=== PATIENT | female | born 1950 | race Caucasian/White ===

== ENCOUNTER 2023-05-11 10:30 | Outpatient (OUT) | payer MEDICARE, BC, SELFPAY ==
--- NOTE | 2023-05-11 10:43 | XR_ITS ---
[address] [address] Patient Name: GRACE HASKINS MRN: [id number] date: 1950 Sex: F Assigned Patient Location: [facility] Current Patient Location: MRI Accession/Order Number: [id number] Exam Date: 05/11/2023 11:40 Report Date: 05/11/2023 21:34 At the request of: MICHELET DYER Procedure: XR DEXA axial skeleton EXAMINATION: XR DEXA axial skeleton, 05/11/2023 11:40 AM EDT HISTORY: Osteoporosis M81.0 COMPARISON: 2020, 2018, 2016 TECHNIQUE: Dual-energy X-ray absorptiometry (DEXA) bone density study performed for the axial skeleton. HISTORY: Osteoporosis M81.0 FINDINGS: Bone mineral density AP spine L1-L4 measures 0.902 g/sq cm. T score -2.3. WHO classification: Osteopenia. Lowest bone mineral density right femoral neck measures 0.64 g/sq cm. T score -3.0. WHO classification: Osteoporosis IMPRESSION: Osteoporosis. High fracture risk Electronically authenticated by: CRISTINA ANTHONY Date: 05/11/2023 21:34
== END 2023-05-11 10:31 | disposition home or self-care (01) ==
LOC: RAD 10:30
PROVIDERS: PCP Internal Medicine
DX: M81.0 Age-related osteoporosis without current pathological fracture (principal); Z79.899 Other long term (current) drug therapy
CPT/HCPCS: 77080

== ENCOUNTER 2023-05-11 10:32 | Outpatient (OUT) | payer MEDICARE, BC, SELFPAY ==
--- NOTE | 2023-05-11 10:49 | MR_ITS ---
[address] [address] Patient Name: GRACE HASKINS MRN: [id number] date: 1950 Sex: F Assigned Patient Location: MRI Current Patient Location: [facility] Accession/Order Number: [id number] Exam Date: 05/11/2023 10:53 Report Date: 05/11/2023 17:32 At the request of: TORIN PERRY Procedure: MR hip RT wo con EXAM: MR hip RT wo con HISTORY: Right hip pain COMPARISON: X-rays 12/01/2022 TECHNIQUE: Axial and coronal large vxuvz-pi-vlkj imaging is performed through the pelvis and both hips. Small ntaya-xc-bfxa coronal and sagittal imaging through the right hip FINDINGS: No fracture, dislocation, subluxation or osseous lesion. The sacroiliac joints are normal. Mild amount age-related marrow edema of the inferior aspect of the left sacral sandy. Joint space narrowing, osteophytes and sclerosis of the pubic symphysis. Moderate amount of fluid within the right greater trochanter bursa. Interstitial edema of the right gluteus minimus muscle. Thickening and edema of the right gluteus minimus tendon. The gluteus medius tendon exhibits no gross thickening, tear or edema. Moderate thickening and interstitial edema of the right common hamstring complex (coronal 25 and axial 30). Mild thickening and interstitial edema of the left common hamstring complex. No tendon tear. The remainder of the visualized tendons are unremarkable. The remainder of the visualized muscles exhibit no additional edema, hematoma, mass or cyst. The bilateral hip joints exhibit no effusion. The bilateral acetabular labrum are unremarkable. The bilateral femoral head and acetabular cartilage exhibit no chondral or osteochondral defects. The superficial subcutaneous soft tissues are free of edema, hematoma, mass or cyst. IMPRESSION: 1. Moderate right gluteus minimus tendinopathy, myositis and reactive fluid within the right greater trochanteric bursa. 2. Moderate left common hamstring origin tendinopathy. 3. Mild right common hamstring origin tendinopathy. 4. Moderate degenerative changes of the pubic symphysis. 5. The sacroiliac and hip joints are unremarkable. Electronically authenticated by: CRISTINA ABREU Date: 05/11/2023 17:32
== END 2023-05-11 10:33 | disposition home or self-care (01) ==
LOC: MRI 10:32
PROVIDERS: PCP Internal Medicine; Visit Provider Neurological Surgery
DX: M81.0 Age-related osteoporosis without current pathological fracture (principal); Z79.899 Other long term (current) drug therapy; M25.551 Pain in right hip; M77.8 Other enthesopathies, not elsewhere classified
CPT/HCPCS: 73721; 77080

== ENCOUNTER 2023-06-10 09:54 | Outpatient (OUT) | payer MEDICARE, BC, SELFPAY ==
[2023-06-10 10:36] LABS: Basophils Absolute Auto 0.1 10^3/uL (0.0-0.1); Basophils Percent Auto 1.4 % (0.2-2.0); Eosinophils Absolute Auto 0.3 10^3/uL (0.0-0.7); Hematocrit 45.4 % (36.0-48.0); Hemoglobin 15.2 g/dL (12.0-16.0); Immature Granulocytes Abs Auto 0.02 10^3/uL (0.00-0.03); Immature Granulocytes Pct Auto 0.4 % (0.0-0.5); Lymphocytes Absolute Auto 1.2 10^3/uL (1.2-3.8); Lymphocytes Percent Auto 24.7 % (20.5-60.0); Mean Corpuscular HGB Conc 33.5 g/dL (29.9-35.2); Mean Corpuscular Hemoglobin 32.4 pg (26.7-34.0); Mean Corpuscular Volume 96.8 fL (81.0-99.0); Mean Platelet Volume 9.9 fL (9.5-13.5); Monocytes Absolute Auto 0.4 10^3/uL (0.3-0.8); Monocytes Percent Auto 8.5 % (1.7-12.0); Platelet Count 254 10^3/uL (150-450); Red Blood Count 4.69 10^6/uL (4.20-5.40); Red Cell Distribution Width 13.2 % (11.0-15.0)
[2023-06-10 11:01] LABS: Alanine Aminotransferase 22 U/L (14-59); Albumin Level 3.7 g/dL (3.4-5.0); Alkaline Phosphatase 58 U/L (46-116); Anion Gap 13.1; Aspartate Amino Transferase 20 U/L (15-37); BUN Creatinine Ratio 25.7; Bilirubin Total 0.9 mg/dL (0.2-1.0); Calcium 9.4 mg/dL (8.5-10.1); Carbon Dioxide 28.3 mmol/L (21.0-32.0); Chloride 102 mmol/L (98-107); Estimated GFR (African America >60 (>=60); Estimated GFR (Non-African Ame 52 (>=60); Globulin 3.7 g/dL; Glucose 95 mg/dL (74-106); Magnesium 2.2 mg/dL (1.8-2.4); Phosphorus 3.7 mg/dL (2.6-4.7); Potassium 4.4 mmol/L (3.5-5.1); Sodium 139 mmol/L (136-145); Thyroid Stimulating Hormone 4.349 uIU/mL (0.358-3.740); Total Protein 7.4 g/dL (6.4-8.2)
[2023-06-11 11:09] LABS: PTH, Intact 28 pg/mL (15-65)
== END 2023-06-10 09:55 | disposition home or self-care (01) ==
PROVIDERS: PCP Internal Medicine
DX: M81.0 Age-related osteoporosis without current pathological fracture (principal); Z79.899 Other long term (current) drug therapy
CPT/HCPCS: 36415; 80053; 82306; 82523; 83735; 83970; 84100; 84443; 84681; 85025

== ENCOUNTER 2025-05-18 08:28 | Outpatient (OUT) | payer MEDICARE, BC, SELFPAY | END 2025-05-18 08:29 | disposition home or self-care (01) | LOC: RAD 08:28 | DX: M81.0 Age-related osteoporosis without current pathological fracture (principal); Z79.899 Other long term (current) drug therapy | CPT/HCPCS: 77080 ==

== ENCOUNTER 2025-05-18 08:35 | Outpatient (OUT) | payer MEDICARE, BC, SELFPAY ==
--- OUTSIDE RECORDS SUMMARY | 2018-04-16 07:10 | XMS_ITS | Continuity of Care Document ---
Author Organization [facility] Address [address] [place] [address] [place] [address] Phone Care Team Providers Care Oxygen Furnace Operator Name Role Phone Unavailable Unavailable Unavailable Procedures Procedure Date PREV VISIT, EST, 65 & OVER PREV VISIT, EST, AGE 40-64 OBTAINING PAP SMEAR PREV VISIT, EST, AGE 40-64 PREV VISIT, NEW, AGE 40-64 OBTAINING PAP SMEAR URINALYSIS, AUTO, W/O SCOPE Advance Directives Directive Yes / No Effective Date File Name No Information Encounters Encounter Description Practice Location Reason(s) For Visit Diagnoses Date Provider Providers Copied on Encounter PREV VISIT, EST, 65 & OVER [facility], [address], [place], [place], [id number], [place] tel:[phone] [facility] No Information No Information PREV VISIT, EST, AGE 40-[address] [facility], [address], [place], [place], [id number], [place] tel:[phone] [facility] No Information No Information PREV VISIT, EST, AGE 40-[address] [facility], [address], [place], [place], [id number], [place] tel:[phone] [facility] No Information No Information PREV VISIT, NEW, AGE 40-[address] [facility], [address], [place], [place], [id number], [place] tel:[phone] [facility] No Information No Information Family History Family Member Type Diagnosis Age At Onset No Information Payers Payer name Insurance type Covered alliance party ID Authoriza akira(s) [facility] [id number] Social History Type Description Quantity Date Captured Comments Sex Female Smoking Status No Information Chief Complaint And Reason For Visit No Information Reason For Referral Reason For Referral No Information History Of Present Illness Encounter Date Complaint History Of Prese nt Illness No Information Functional Status Date Functional Assessmen t No Information Instructions Date Instruction Additional Infor mation No Information Assessments Type Assessment Date No Information Patient Care Teams Name Effective Dates (start - stop) Status Members No Information
--- OUTSIDE RECORDS SUMMARY | 2025-05-05 09:30 | XMS_ITS | Encounter Summary ---
Author Organization [facility] Address [address] [facility] [place] [address] Care Team Providers Care Integrated Circuit Ic Layout Designer Name Role Phone Memo Downs DO Primary Care Provider [phone] Reason for Visit * Reason Comments Eye Exam Encounter Details Date Type Department Care Team (Late st Contact Info) Description 05/05/2025 9:30 AM EDT Office Visit [facility] [address] [place] [address] Carson Fry DO [address] [place] [address] Age-related nuclear cataract of both eyes (Primary Dx); Dry eyes; Pterygium of both eyes Social History Tobacco Use Types Packs/Day Years Used Date Smoking Tobacco: Former Cigarettes Q uit: 1989 Tobacco Cessation:Counseling Given: Not Answered Alcohol Use Standard Drinks/Week Comments Yes 0 (1 standard drink = 0.6 oz pur e alcohol) Comments Unknown Sex and Gender Information Value Date Recorded Sex Assigned at Not on file Legal Sex Female 8:01 PM EDT Gender Identity Not on file Sexual Orientation Not on file documented as of this encounter Progress Notes * Carson Fry DO - 05/05/2025 9:30 AM EDT Images from the original note were not included. Assessment/Plan Diagnoses and all orders for this visit: Age-related nuclear cataract of both eyes - Cataract, OU: Observe for now without intervention. The patient was advised to contact us if any change or worsening of vision Dry eyes - Dry Eyes OU -- Environmental changes to minimize dryness and exposure and the use of artificial tears were recommended. Pterygium of both eyes - Stable. Condition d/w pt. documented in this encounter Plan of Treatment Upcoming Encounters Date Type Department Care Team (Late st Contact Info) Description 05/09/2026 9:00 AM EDT Office Visit [facility] [address] [place] [address] Carson Fry DO [address] [place] [address] documented as of this encounter Visit Diagnoses Diagnosis Age-related nuclear cataract of both eyes- Primary Dry eyes Unspecified tear film insufficiency Pterygium of both eyes documented in this encounter Care Teams Integrated Circuit Ic Layout Designer Relationship Specialty Start Date End Date Memo Downs DO PCP - General Internal Medicine 06/08/23 documented as of this encounter
--- NOTE | 2025-05-18 08:38 | MR_ITS ---
The [address] [address] Patient Name: GRACE HASKINS MRN: [id number] date: 1950 Sex: F Assigned Patient Location: MRI Current Patient Location: MRI Accession/Order Number: [id number] Exam Date: 05/18/2025 12:26 Report Date: 05/18/2025 12:37 At the request of: DANA GIL DO Procedure: MR lumbar spine wo con MRI lumbar spine performed without contrast INDICATION: Spondylolysis of lumbosacral spine with radiculopathy, chronic right hip/sacroiliac joint pain COMPARISON: Lumbar spine x-rays 03/19/2023 FINDINGS: Lumbar vertebral heights maintained. There is 1 cm anterolisthesis of L4 on L5. There is 3 mm of retrolisthesis L1 on L2 and at L2-L3 noted. Mild levocurvature otherwise alignment is unremarkable. Oewh-sh-itrrgwym intervertebral space narrowing L1-L3 moderate severe intervertebral narrowing L4-S1. Endplate marrow degenerative changes L3-4 through S1 and less so L2-3. Conus medullaris is normally there is a cauda equina are unremarkable. The paraspinal soft tissues are unremarkable. T12-L1: Facet arthropathy. No significant disease central canal or foraminal identified. L1-2: Broad-based disc bulge with facet arthropathy. Mild from narrowing. Canal is patent. L2-3: Broad-based disc bulge with vqxn-ju-xojzliku facet arthropathy. Mild right foraminal narrowing. Left foramen and canal are patent. L3-4: Broad-based disc bulge with facet arthropathy. Right foramen and central canal patent. Mild left neural neural foraminal narrowing identified. L4-5: Anterolisthesis with uncovering of the posterior disc noted. Bilateral facet arthropathy, moderate to severe. There is moderate severe central canal stenosis and subarticular recess encroachment. Severe right neural foraminal narrowing effacing the exiting right L4 nerve root and moderate to severe left neural from narrowing with mass effect on the left L4 nerve root to lesser extent. L5-S1: Broad-based disc bulge asymmetric towards the left with superimposed left foraminal zone protrusion. Small and facet arthropathy. Mild prominent left-sided neural from narrowing. Canal is patent. Kzlr-cj-pgkrpatk facet arthropathy. MR/MR lumbar spine wo con IMPRESSION: Multilevel predominantly posterior element degenerative changes notably L4 through S1 with 1 cm anterolisthesis of L4-L5 causing central canal, subarticular zone and foraminal encroachment L4-5. Correlate with possible right-sided L4 radiculopathy given the right-sided neural foraminal narrowing. Impression dictated by: Dheeraj Rodgers M.D. 05/18/2025 12:37 PM Dictation Location: [place] [address] Electronically authenticated by: [id number] Y Date: 05/18/2025 12:37
--- OUTSIDE RECORDS SUMMARY | 2025-05-18 08:38 | XMS_ITS | Clinical Summary ---
Author Organization [facility] Address [address] [place] [address] Care Team Providers Care Engrosser Name Role Phone Memo Downs DO Primary Care Provider [phone] Social History Tobacco Use Types Packs/Day Years Used Date Smoking Tobacco: Former Cigarettes Passive Smoke Exposure: Never Smokeless Tobacco: Never Tobacco Cessation:Counseling Given: Not Answered Comments No Sex and Gender Information Value Date Recorded Sex Assigned at Female 02/03/2025 3:06 PM EDT Legal Sex Female 10:29 AM EDT Gender Identity Not on file Sexual Orientation Not on file Plan of Treatment Health Maintenance Due Date Last Done Comments Depression Screen 1964 Hepatitis C screen 02/21/1970 DTaP/Tdap/Td vaccine (1 - Tdap) 02/21/1971 Colonoscopy 02/21/1997 Colorectal Cancer Screen 02/21/1997 FIT/FOBT: Average risk 02/21/1997 Fecal-DNA (Cologuard): [place] ge risk 02/21/1997 Sigmoidoscopy/CT colonography 02/21/1997 Pneumococcal 50+ years Vacci ne (1 of 1 - PCV) 02/21/2002 Shingles vaccine (1 of 2) 02/21/2002 DEXA (modify frequency per FRAX score) 02/21/2007 Annual Wellness Visit (Medicare) 10/12/2023 COVID-19 Vaccine (3 - 2023-2 5 season) 2024 02/05/2021, 01/08/2021 Breast cancer screen 02/08/2027 02/08/2025, 01/22/2024 Respiratory Syncytial Virus (RSV) or age 60 yrs+ (1 - 1-dose 75+ series) 02/21/2027 Lipids 01/24/2029 01/25/2024 Flu vaccine Completed 08/16/2024, 09/15/2022 Hepatitis A vaccine Aged Out No longe r eligible based on patient's age to complete this topic Hepatitis B vaccine Aged Out No longe r eligible based on patient's age to complete this topic Hib vaccine Aged Out No longer eligi ble based on patient's age to complete this topic Meningococcal (ACWY) vaccine Aged Out No longer eligible based on patient's age to complete this topic Meningococcal B vaccine Aged Out No l onger eligible based on patient's age to complete this topic Polio vaccine Aged Out No longer elig ible based on patient's age to complete this topic Procedures Procedure Name Priority Date/Time Associated Diagnosis Comments LINNETTE LEVY DIGITAL SCREEN BILATERAL Routine 02/08/2025 9:38 AM EDT Encounter for screening mammogram for malignant neoplasm of breast LIPID PANEL Routine 01/25/2024 9:27 AM EDT from Last 3 Months or Most Recently Relevant to Health Maintenance Results * LINNETTE LEVY DIGITAL SCREEN BILATERAL (02/08/2025 9:38 AM EDT) Anatomical Region Laterality Modality Breast Bilateral Mammography 02/08/2025 9:38 AM EDT Impressions 02/14/2025 4:17 PM EDT OVERALL ASSESSMENT: BIRADS: 1 Negative, no evidence of malignancy. A letter of notification will be mailed to the patient. Performing Facility: [place] [address] Narrative 02/14/2025 4:17 PM EDT HISTORY: Screening. TECHNIQUE: Bilateral digital screening mammogram with CAD. Digital breast tomosynthesis imaging. FINDINGS: Two views of each breast were obtained. There are scattered areas of fibroglandular density. BREAST DENSITY CODE: S: Scattered No change from prior studies most recent of 01/22/2024. Suspicious calcifications: None. Suspicious mass: None. (If skin markers were applied, circles represent skin lesions and linear markers represent scars.) Memo Downs DO IMG MAMMOGRAPHY ORDERABLES Marita l Result * (ABNORMAL) Lipid Panel (01/25/2024 9:27 AM EDT) Cholesterol 192 0 - 199 mg/dL 01/25/2024 9:27 AM EDT [facility] Comment: Cholesterol Guidelines: <200 Desirable 200-240 Borderline >240 Undesirable HDL 46 >40 mg/dL 01/25/2024 9:27 AM EDT [facility] Comment: HDL Guidelines: <40 Undesirable 40-59 Borderline >59 Desirable LDL Cholesterol 122(H) 0 - 100 mg/dL 01/25/2024 9:27 AM EDT [facility] Comment: LDL Guidelines: <100 Desirable 100-129 Near to/above Desirable 130-159 Borderline >159 Undesirable Direct (measured) LDL and calculated LDL are not interchangeable tests. Chol/HDL Ratio 4.0 01/25/2024 9:27 AM EDT [facility] Triglycerides 116 <150 mg/dL 01/25/2024 9:27 AM EDT [facility] Comment: Triglyceride Guidelines: <150 Desirable 150-199 Borderline 200-499 High >499 Very high Based on AHA Guidelines for fasting triglyceride, August 2012. VLDL 23 mg/dL 01/25/2024 9:27 AM EDT [facility] 01/25/2024 9:27 AM EDT 01/25/2024 9:28 AM EDT us Memo Downs DO CHEMISTRY ORDERABLES Final Resu lt [facility] [address] [place] [address], [facility] [phone] [facility] [address] [place], [place] [address] [phone] from Last 3 Months or Most Recently Relevant to Health Maintenance Insurance [place]ARE [place] Care Teams Engrosser Relationship Specialty Start Date End Date Memo Downs DO [address] [place] [id number] PCP - General Internal Medicine 08/27/23
--- OUTSIDE RECORDS SUMMARY | 2025-05-18 08:38 | XMS_ITS | Encounter Summary ---
Author Organization [facility] Address [address] [place] [address] Care Team Providers Care Lawn Mower Repairer Name Role Phone Memo Downs [place] BELCHER Primary Care Provider [phone] Source Comments In the event this information is protected by the Federal Confidentiality of Alcohol and Drug AbusePatient Records regulations: The Federal rules restrict any use of the information to criminally investigate or prosecute any alcohol or drug abuse patient.[facility] Encounter Details Date Type Department Care Team (Late st Contact Info) Description 02/08/2021 Get Medical Advice [facility] [address] [address] File, Margi Richards MD [address] [place] [address] RE: Upcoming Appointment Question Social History Tobacco Use Types Packs/Day Years Used Date Smoking Tobacco: Former Cigarettes 1 35 Smokeless Tobacco: Never PHQ-2 Answer Date Recorded PHQ-2 score 0 05/13/2019 Area Deprivation Index Answer Date Esequiel rded National Score (1-100), lower number is lower ri sk Not on file 10/23/2020 State Score (1-10), lower number is lower risk N ot on file 10/23/2020 Data from: https://www.neighborhoodatlas.medicine.[facility].edu/. Last address used for calculation Not on file 10/23/2020 Comments Unknown Sex and Gender Information Value Date Recorded Sex Assigned at Female 05/22/2021 3:48 PM EDT Legal Sex Female 10:30 AM EST Gender Identity Female 05/22/2021 3:48 PM EDT Sexual Orientation Not on file documented as of this encounter Plan of Treatment Not on file documented as of this encounter Visit Diagnoses Not on filedocumented in this encounter Care Teams Lawn Mower Repairer Relationship Specialty Start Date End Date Memo Downs DO [address] [place] [address] PCP - General Internal Medicine 03/05/18 documented as of this encounter
--- OUTSIDE RECORDS SUMMARY | 2025-05-18 08:38 | XMS_ITS | Clinical Summary ---
Author Organization [facility] Address [address] [facility] [place] [address] Care Team Providers Care Food Products Sales Representative Name Role Phone Memo Downs DO Primary Care Provider [phone] Allergies Active Allergy Reactions Criticality Noted Date Comments Doxycycline GI intolerance,Rash Low 06/03/2023 Medications cholecalciferol (Vitamin D-3) 10 MCG (400 UNIT) capsule Take 400 Units by mouth in the morning. Active famotidine (Pepcid) 20 MG tablet Take 20 mg by mouth in the morning and 20 mg in the evening. Active Active Problems Problem Noted Date Diagnosed Date Age-related nuclear cataract of both eyes 2024 Dry eyes 05/05/2025 Pterygium of both eyes 05/05/2025 Encounters Date Type Department Care Team Description 05/05/2025 9:30 AM EDT Office Visit [facility] [address] [place] [address] Carson Fry DO Age-related nuclear cataract of both eyes (Primary Dx); Dry eyes; Pterygium of both eyes 05/05/2025 Bamboo flowsheet [facility] [address] [place] [id number] Carson Fry DO 05/05/2025 Travel from Last 3 Months Family History Medical History Relation Name Comments Macular degeneration Mother Glaucoma Neg Hx Relation Name Status Comments Mother Social History Tobacco Use Types Packs/Day Years [...] on file Sexual Orientation Not on file Last Filed Vital Signs Vital Sign Reading Time Taken Comments Blood Pressure - - Pulse - - Temperature - - Respiratory Rate - - Oxygen Saturation - - Inhaled Oxygen Concentration - - Weight 59 kg (130 lb) 06/08/2023 10:51 AM EDT Height 156.2 cm (5' 1.5 ) 06/08/2023 10:51 AM ED T Body Mass Index 24.17 06/08/2023 10:51 AM EDT Plan of Treatment Upcoming Encounters Date Type Department Care Team (Late st Contact Info) Description 05/09/2026 9:00 AM EDT Office Visit [facility] [address] [place] [id number] Carson Fry DO [address] [place] [address] Health Maintenance Due Date Last Done Comments CT Colonography 1950 Colonoscopy 1950 Colorectal Cancer Screening 1950 FIT-DNA 1950 FIT 1950 FOBT 1950 Sigmoidoscopy 1950 Pneumococcal Vaccine: 65+ Ye ars (1 of 1 - PCV) 02/21/2002 Mammogram 02/08/2026 02/08/2025, 01/15, 01/22/2024 Influenza Vaccine Completed 08/16/2024, 09/15/2022 Insurance [facility] MEDICARE Care Teams Food Products Sales Representative Relationship Specialty Start Date End Date Memo Downs DO PCP - General Internal Medicine 06/08/23
--- OUTSIDE RECORDS SUMMARY | 2025-05-18 08:38 | XMS_ITS | Encounter Summary ---
Author Organization [facility] Address [address] [place] [address] Care Team Providers Care Post Adoption Coordinator Name Role Phone Memo Downs [place] BELCHER Primary Care Provider [phone] Source Comments In the event this information is protected by the Federal Confidentiality of Alcohol and Drug AbusePatient Records regulations: The Federal rules restrict any use of the information to criminally investigate or prosecute any alcohol or drug abuse patient.[facility] Encounter Details Date Type Department Care Team (Late st Contact Info) Description 05/16/2023 Get Medical Advice [facility] [address] [address] File, Margi Richards MD [address] [place] [address] Lab Orders Social History Tobacco Use Types Packs/Day Years Used Date Smoking Tobacco: Former Cigarettes 1 35 Smokeless Tobacco: Never PHQ-2 Answer Date Recorded PHQ-2 score 0 06/04/2022 Area Deprivation Index Answer Date Esequiel rded National Score (1-100), lower number is lower ri sk 49 12/14/2022 State Score (1-10), lower number is lower risk N ot on file 12/14/2022 Data from: https://www.neighborhoodatlas.medicine.[facility].edu/. Last address used for calculation [address] 12/14/2022 Comments Unknown Sex and Gender Information Value Date Recorded Sex Assigned at Female 05/22/2021 3:48 PM EDT Legal Sex Female 10:30 AM EST Gender Identity Female 05/22/2021 3:48 PM EDT Sexual Orientation Not on file documented as of this encounter Plan of Treatment Not on file documented as of this encounter Visit Diagnoses Not on filedocumented in this encounter Care Teams Post Adoption Coordinator Relationship Specialty Start Date End Date Memo Downs DO [address] [place] [address] PCP - General Internal Medicine 03/05/18 documented as of this encounter
--- OUTSIDE RECORDS SUMMARY | 2025-05-18 08:38 | XMS_ITS | Encounter Summary ---
Author Organization [facility] Address [address] [place] [address] Care Team Providers Care Cafe Operator Name Role Phone Memo Downs [place] BELCHER Primary Care Provider [phone] Source Comments In the event this information is protected by the Federal Confidentiality of Alcohol and Drug AbusePatient Records regulations: The Federal rules restrict any use of the information to criminally investigate or prosecute any alcohol or drug abuse patient.[facility] Encounter Details Date Type Department Care Team (Late st Contact Info) Description 05/17/2021 Get Medical Advice [facility] [address] [address] File, Margi Richards MD [address] [place] [address] RE: Test Result Question Social History Tobacco Use Types Packs/Day Years Used Date Smoking Tobacco: Former Cigarettes 1 35 Smokeless Tobacco: Never PHQ-2 Answer Date Recorded PHQ-2 score 0 05/13/2019 Area Deprivation Index Answer Date Esequiel rded National Score (1-100), lower number is lower ri sk Not on file 10/23/2020 State Score (1-10), lower number is lower risk N ot on file 10/23/2020 Data from: https://www.neighborhoodatlas.medicine.[facility].edu/. Last address used for calculation Not [...] on filedocumented in this encounter Care Teams Cafe Operator Relationship Specialty Start Date End Date Memo Downs DO [address] [place] [address] PCP - General Internal Medicine 03/05/18 documented as of this encounter
--- OUTSIDE RECORDS SUMMARY | 2025-05-18 08:38 | XMS_ITS | Clinical Summary ---
Author Organization [facility] Address [facility] [place] [address] Care Team Providers Care Wash Driller Helper Name Role Phone Himanshu Memo Mead Primary Care Provider [phone] Allergies Active Allergy Reactions Criticality Noted Date Comments Tetracycline Unknown Medications calcium cit/mag/D3/Zn/copper plate printer /josé manuel (CALCIUM CITRATE PLUS ORAL) Take 800 mg by mouth. Active cholecalciferol, vitamin D3, (VITAMIN D-3) 400 unit cap Take 400 Units by mouth once daily. Active COMPOUNDED PRESCRIPTION Restore eye vitamin Active famotidine (PEPCID) 20 mg tablet Take 1 tablet by mouth as needed. 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 Encounter for long-term (current) use of medicat ions 03/28/2018 Immunizations Immunization Administration Dates Next Due COVID-19 original vaccine, f ull dose, monovalent (MODERNA) 02/05/2021,01/08/2021 influenza (aIIV4) vaccine, a ge 65+ yr, quadrivalent, PF (FLUAD QUAD) 09/15/2022 Social History Tobacco Use Types Packs/Day Years Used Date Smoking Tobacco: Former Cigarettes 1 35 Smokeless Tobacco: Never Tobacco Cessation:Counseling Given: Not Answered PHQ-2 Answer Date Recorded PHQ-2 score 0 06/02/2024 Area Deprivation Index Answer Date Esequiel rded National Score (1-100), lower number is lower ri sk 39 06/26/2023 State Score (1-10), lower number is lower risk 2 06/26/2023 Data from: https://www.neighborhoodatlas.medicine.[facility].edu/. Last address used for calculation [address] 06/26/2023 Comments Unknown Sex and Gender Information Value Date Recorded Sex Assigned at Female 05/22/2021 3:48 PM EDT Legal Sex Female 10:30 AM EST Gender Identity Female 05/22/2021 3:48 PM EDT Sexual Orientation Not on file Last Filed Vital Signs Vital Sign Reading Time Taken Comments Blood Pressure 107/66 06/26/2023 9:47 AM EDT Pulse 67 06/26/2023 9:47 AM EDT Temperature 36.6 C (97.9 F) 06/06/2022 9:31 AM EDT Respiratory Rate - - Oxygen Saturation - - Inhaled Oxygen Concentration - - Weight 60.9 kg (134 lb 4.8 oz) 06/26/20 9:47 AM EDT Height 157 cm (5' 1.81 ) 06/26/2023 9:4 7 AM EDT with shoes Body Mass Index 24.71 06/26/2023 9:47 AM EDT Plan of Treatment Health Maintenance Due Date Last Done Comments Anxiety Screening 02/21/1970 Depression Screening 02/21/1970 Hepatitis C Screening 02/21/1970 DTaP,Tdap,Td Vaccine (1 - Tdap) 02/21/1971 CT Colonography 02/21/1997 Cologuard (FIT-DNA) 02/21/1997 Colonoscopy 02/21/1997 Colorectal Cancer Screening 02/21/1997 Fecal Occult Blood 02/21/1997 Sigmoidoscopy 02/21/1997 Shingrix Vaccine (1 of 2) 02/21/2002 Medicare Annual Wellness Visit 02/14/2017 Bone Density Screening 02/21/2017 Pneumococcal Vaccine: 50+ (2 of 2 - PCV) 09/16/2022 09/16/2021 Covid-19 Vaccine (4 - 2023-2 5 season) 2024 10/22/2021, 02/05/2021, 01/08/2021 Advance Directive Discussion 11/16/2024 Mammogram Screening 01/21/2025 01/22/2024, Influenza Vaccine (Season Ended) 2025 09/17/2023, 09/15/2022, 09/09/2021, Additional history exists RSV Vaccine (1 - 1-dose 75+ series) 02/21/2027 Diabetes Screening 09/26/2027 09/26/2024, 0 01/25/2024, 06/18/2023, Additional history exists Lipid Screening 01/24/2029 01/25/2024 Insurance MEDICARE [employer] MEDICARE SUPPLEMENT Care Teams Wash Driller Helper Relationship Specialty Start Date End Date Memo Downs DO [address] [place] [address] PCP - General Internal Medicine 03/05/18
--- OUTSIDE RECORDS SUMMARY | 2025-05-18 08:38 | XMS_ITS | Encounter Summary ---
Author Organization [facility] Address [address] [place] [address] Care Team Providers Care Client Delivery Specialist Name Role Phone Memo Downs [place] BELCHER Primary Care Provider [phone] Source Comments In the event this information is protected by the Federal Confidentiality of Alcohol and Drug AbusePatient Records regulations: The Federal rules restrict any use of the information to criminally investigate or prosecute any alcohol or drug abuse patient.[facility] Encounter Details Date Type Department Care Team (Late st Contact Info) Description 07/07/2022 Get Medical Advice [facility] [address] [address] File, Margi Richards MD [address] [place] [address] Lab Test Results Social History Tobacco Use Types Packs/Day Years Used Date Smoking Tobacco: Former Cigarettes 1 35 Smokeless Tobacco: Never PHQ-2 Answer Date Recorded PHQ-2 score 0 06/04/2022 Area Deprivation Index Answer Date Esequiel rded National Score (1-100), lower number is lower ri 49 06/06/2022 State Score (1-10), lower number is lower risk N ot on file 06/06/2022 Data from: https://www.neighborhoodatlas.medicine.[facility].edu/. Last address used for calculation [address] 06/06/2022 Comments Unknown Sex and Gender Information Value Date Recorded Sex Assigned at Female 05/22/2021 3:48 PM EDT Legal Sex Female 10:30 AM EST Gender Identity Female 05/22/2021 3:48 PM EDT Sexual Orientation Not on file documented as of this encounter Plan of Treatment Not on file documented as of this encounter Visit Diagnoses Not on filedocumented in this encounter Care Teams Client Delivery Specialist Relationship Specialty Start Date End Date Memo Downs DO [address] [place] [address] PCP - General Internal Medicine 03/05/18 documented as of this encounter
--- OUTSIDE RECORDS SUMMARY | 2025-05-18 08:38 | XMS_ITS | Encounter Summary ---
Author Organization [facility] Address [address] [place] [address] Care Team Providers Care Teletypist Name Role Phone Memo Downs [place] BELCHER Primary Care Provider [phone] Source Comments In the event this information is protected by the Federal Confidentiality of Alcohol and Drug AbusePatient Records regulations: The Federal rules restrict any use of the information to criminally investigate or prosecute any alcohol or drug abuse patient.[facility] Encounter Details Date Type Department Care Team (Late st Contact Info) Description 08/10/2022 Get Medical Advice [facility] [address] [address] File, Margi Richards MD [address] [place] [address] Lab results Social History Tobacco Use Types Packs/Day Years Used Date Smoking Tobacco: Former Cigarettes 1 35 Smokeless Tobacco: Never PHQ-2 Answer Date Recorded PHQ-2 score 0 06/04/2022 Area Deprivation Index Answer Date Esequiel rded National Score (1-100), lower number is lower ri sk 49 06/06/2022 State Score (1-10), lower number is lower risk N ot on file 06/06/2022 Data from: https://www.neighborhoodatlas.medicine.[facility].edu/. Last address used for calculation [address] 06/06/2022 Comments Unknown Sex [...] on filedocumented in this encounter Care Teams Teletypist Relationship Specialty Start Date End Date Memo Downs DO [address] [place] [address] PCP - General Internal Medicine 03/05/18 documented as of this encounter
--- OUTSIDE RECORDS SUMMARY | 2025-05-18 08:38 | XMS_ITS | Encounter Summary ---
Author Organization [facility] Address [address] [facility] [place] [address] Care Team Providers Care Woodwind Instrument Repairer Name Role Phone Memo Downs DO Primary Care Provider [phone] Encounter Details Date Type Department Care Team (Latest Contact Info) Description 05/05/2025 Travel Social History Tobacco Use Types Packs/Day Years Used Date Smoking Tobacco: Former Cigarettes Q uit: 1989 Alcohol Use Standard Drinks/Week Comments Yes 0 (1 standard drink = 0.6 oz pur e alcohol) Comments Unknown Sex and Gender Information Value Date Recorded Sex Assigned at Not on file Legal Sex Female 8:01 PM EDT Gender Identity Not on file Sexual Orientation Not on file documented as of this encounter Plan of Treatment Upcoming Encounters Date Type Department Care Team (Late st Contact Info) Description 05/09/2026 9:00 AM EDT Office Visit [facility] [address] [place] [id number] Carson Fry DO [address] [place] [address] documented as of this encounter Visit Diagnoses Not on filedocumented in this encounter Care Teams Woodwind Instrument Repairer Relationship Specialty Start Date End Date Memo Downs DO PCP - General Internal Medicine 06/08/23 documented as of this encounter
--- OUTSIDE RECORDS SUMMARY | 2025-05-18 08:38 | XMS_ITS | Encounter Summary ---
Author Organization [facility] Address [address] [facility] [place] [address] Care Team Providers Care Summer Internship Name Role Phone Memo Downs DO Primary Care Provider [phone] Encounter Details Date Type Department Care Team ([facility] Contact Info) Description 05/05/2025 Bamboo flowsheet [facility] [address] [place] [address] Carson Fry DO [address] [place] [address] Social History Tobacco Use Types Packs/Day Years [...] [facility] [address] [place] [address] Carson Fry DO [address] [place] [address] documented as of this encounter Visit Diagnoses Not on filedocumented in this encounter Care Teams Summer Internship Relationship Specialty Start Date End Date Memo Downs DO PCP - General Internal Medicine 06/08/23 documented as of this encounter
--- OUTSIDE RECORDS SUMMARY | 2025-05-18 08:38 | XMS_ITS | Encounter Summary ---
Author Organization [facility] Address [address] [place] [address] Care Team Providers Care Campus Administrator Name Role Phone Memo Downs [place] BELCHER Primary Care Provider [phone] Source Comments In the event this information is protected by the Federal Confidentiality of Alcohol and Drug AbusePatient Records regulations: The Federal rules restrict any use of the information to criminally investigate or prosecute any alcohol or drug abuse patient.[facility] Encounter Details Date Type Department Care Team (Late st Contact Info) Description 05/22/2021 Patient Msg [facility] [address] [address] File, Margi Richards MD [address] [place] [address] update Social History Tobacco Use Types Packs/Day Years Used Date Smoking Tobacco: Former Cigarettes 1 35 Smokeless Tobacco: Never PHQ-2 Answer Date Recorded PHQ-2 score 0 05/22/2021 Area Deprivation Index Answer Date Esequiel rded National Score (1-100), lower number is lower ri sk Not on file 10/23/2020 State Score (1-10), lower number is lower risk N ot on file 10/23/2020 Data from: https://www.neighborhoodatlas.medicine.[facility].edu/. Last address used for calculation Not on file 10/23/2020 Comments Unknown Sex and Gender Information Value Date Recorded Sex Assigned at Female 05/22/2021 3:48 PM EDT Legal Sex Female 10:30 AM EST Gender Identity Female 05/22/2021 3:48 PM EDT Sexual Orientation Not on file COVID-19 Exposure Response Date Recorded In the last month, have you been in contact with someone who was confirmed or suspected to have Coronavirus / COVID-19? No / Unsure 05/24/2021 3:18 PM EDT documented as of this encounter Plan of Treatment Not on file documented as of this encounter Visit Diagnoses Not on filedocumented in this encounter Care Teams Campus Administrator Relationship Specialty Start Date End Date Memo Downs DO [address] [place] [address] PCP - General Internal Medicine 03/05/18 documented as of this encounter
--- OUTSIDE RECORDS SUMMARY | 2025-05-18 08:38 | XMS_ITS | Encounter Summary ---
Author Organization [facility] Address [address] [place] [address] Care Team Providers Care Client Operations Manager Name Role Phone Memo Downs [place] BELCHER Primary Care Provider [phone] Source Comments In the event this information is protected by the Federal Confidentiality of Alcohol and Drug AbusePatient Records regulations: The Federal rules restrict any use of the information to criminally investigate or prosecute any alcohol or drug abuse patient.[facility] Encounter Details Date Type Department Care Team (Late st Contact Info) Description 05/20/2022 Patient Msg [facility] [address] [address] File, Margi Richards MD [address] [place] [address] Request an Appointment Social History Tobacco Use Types Packs/Day Years Used Date Smoking Tobacco: Former Cigarettes 1 35 Smokeless Tobacco: Never PHQ-2 Answer Date Recorded PHQ-2 score 0 05/22/2021 Area Deprivation Index Answer Date Esequiel rded National Score (1-100), lower number is lower ri Not on file 10/23/2020 State Score (1-10), lower number is lower risk N ot on file 10/23/2020 Data from: https://www.neighborhoodatlas.medicine.[facility].edu/. Last address used for calculation Not on [...] filedocumented in this encounter Care Teams Client Operations Manager Relationship Specialty Start Date End Date Memo Downs DO [address] [place] [address] PCP - General Internal Medicine 03/05/18 documented as of this encounter
--- OUTSIDE RECORDS SUMMARY | 2025-05-18 08:38 | XMS_ITS | Encounter Summary ---
Author Organization [facility] Address [address] [place] [address] Care Team Providers Care Geek Squad Autotech Name Role Phone Memo Downs [place] BELCHER Primary Care Provider [phone] Source Comments In the event this information is protected by the Federal Confidentiality of Alcohol and Drug AbusePatient Records regulations: The Federal rules restrict any use of the information to criminally investigate or prosecute any alcohol or drug abuse patient.[facility] Encounter Details Date Type Department Care Team (Late st Contact Info) Description 07/29/2022 Get Medical Advice [facility] [address] [address] File, Margi Richards MD [address] [place] [address] Lab test results Social History Tobacco Use Types Packs/Day Years Used Date Smoking Tobacco: Former Cigarettes 1 35 Smokeless Tobacco: Never PHQ-2 Answer Date Recorded PHQ-2 score 0 06/04/2022 Area Deprivation Index Answer Date Esequiel rded National Score (1-100), lower number is lower ri 49 06/06/2022 State Score (1-10), lower number is lower risk N ot on file 06/06/2022 Data from: https://www.neighborhoodatlas.medicine.[facility].edu/. Last address used for calculation [address] 06/06/2022 Comments Unknown Sex [...] on filedocumented in this encounter Care Teams Geek [employer] Relationship Specialty Start Date End Date Memo Downs DO [address] [place] [address] PCP - General Internal Medicine 03/05/18 documented as of this encounter
--- OUTSIDE RECORDS SUMMARY | 2025-05-18 08:38 | XMS_ITS | Encounter Summary ---
Author Organization [facility] Address [address] [place] [address] Care Team Providers Care Gunsmith Apprentice Name Role Phone Memo Downs [place] BELCHER Primary Care Provider [phone] Source Comments In the event this information is protected by the Federal Confidentiality of Alcohol and Drug AbusePatient Records regulations: The Federal rules restrict any use of the information to criminally investigate or prosecute any alcohol or drug abuse patient.[facility] Encounter Details Date Type Department Care Team (Late st Contact Info) Description 06/23/2022 Get Medical Advice [facility] [address] [address] File, Margi Richards MD [address] [place] [address] Fasting second morning Urine for N-telopeptide Social History Tobacco Use Types Packs/Day Years Used Date Smoking Tobacco: Former Cigarettes 1 35 Smokeless Tobacco: Never PHQ-2 Answer Date Recorded PHQ-2 score 0 06/04/2022 Area Deprivation Index Answer Date Esequiel rded National Score (1-100), lower number is lower ri sk 49 06/06/2022 State Score (1-10), lower number is lower risk N ot on file 06/06/2022 Data from: https://www.neighborhoodatlas.medicine.[facility].edu/. Last address used for calculation [address] 06/06/2022 Comments Unknown Sex and Gender Information Value Date Recorded Sex Assigned at Female 05/22/2021 3:48 PM EDT Legal Sex Female 10:30 AM EST Gender Identity Female 05/22/2021 3:48 PM EDT Sexual Orientation Not on file COVID-19 Exposure Response Date Recorded In the last 10 days, have yo u been in contact with someone who was confirmed or suspected to have Coronavirus/COVID-19? No / Unsure 06/06/2022 9:04 AM EDT documented as of this encounter Plan of Treatment Not on file documented as of this encounter Visit Diagnoses Not on filedocumented in this encounter Care Teams Gunsmith Apprentice Relationship Specialty Start Date End Date Memo Downs DO [address] [place] [address] PCP - General Internal Medicine 03/05/18 documented as of this encounter
== END 2025-05-18 08:36 | disposition home or self-care (01) ==
LOC: MRI 08:35
PROVIDERS: Visit Provider Internal Medicine
DX: M47.27 Other spondylosis with radiculopathy, lumbosacral region (principal); M81.0 Age-related osteoporosis without current pathological fracture; Z79.899 Other long term (current) drug therapy
CPT/HCPCS: 72148; 77080